=== PATIENT | male | born 1980 | race Caucasian/White ===

== ENCOUNTER 2020-10-16 11:05 | Outpatient (CLI) | payer MEDICARE, MEDICAID | END 2020-10-16 23:59 | disposition home or self-care (01) | LOC: CFH 11:05 | PROVIDERS: ATTEND Hospitalist | DX: R05 Cough (principal); M41.85 Other forms of scoliosis, thoracolumbar region | CPT/HCPCS: 71250 ==

== ENCOUNTER → 2020-10-17 | Outpatient (CLI) | payer MEDICARE, MEDICAID | END | disposition home or self-care (01) | LOC: RAD 07:41 | PROVIDERS: ATTEND Internal Medicine Gastroenterology | DX: K22.2 Esophageal obstruction (principal); R05 Cough; G81.90 Hemiplegia, unspecified affecting unspecified side; I67.89 Other cerebrovascular disease; T17.908A Unspecified foreign body in respiratory tract, part unspecified causing other injury, initial encounter; M40.209 Unspecified kyphosis, site unspecified; X58.XXXA Exposure to other specified factors, initial encounter; Y93.89 Activity, other specified; Y92.89 Other specified places as the place of occurrence of the external cause; Y99.8 Other external cause status; F72 Severe intellectual disabilities; Z93.1 Gastrostomy status; Z68.23 Body mass index [BMI] 23.0-23.9, adult | CPT/HCPCS: 74240 ==

== ENCOUNTER 2020-12-06 08:00 | Day surgery (SDC) | payer MEDICARE, MEDICAID ==
[~2020-12-06] VITALS: Ht 162.6 cm; Wt 61.4 kg
[~2020-12-06 08:00] MED LIST: LIDOCAINE 4% TOPICAL SOLUTION 50 ML ONE; LIDOCAINE GEL 2%, 5ML ONE
[2020-12-06 09:26] VITALS: BP 136/87
[2020-12-06] MEDS ORDERED: CARB100O PEG (09:32)
[2020-12-06] MEDS ORDERED: miralax PEG (09:32)
[2020-12-06] MEDS ORDERED: LORA-247 PEG (09:32)
[2020-12-06] MEDS ORDERED: LANS15CA53 PEG (09:32)
[2020-12-06] MEDS ORDERED: melatonin PEG (09:32)
[2020-12-06] MEDS ORDERED: FENTANYL PF 100 MCG/2ML ONE (09:44)
[2020-12-06] MEDS ORDERED: MIDAZOLAM 1 MG/ML, 5ML ONE (09:44)
[2020-12-06 09:45] LABS: BASOPHILS % (AUTO) 1 % (0-1); EOSINOPHILS % (AUTO) 1 % (1-7); LYMPHOCYTES % (AUTO) 33 % (22-44); MEAN CORPUSCULAR HEMOGLOBIN 31.8 pg (27.5-34.5); MEAN CORPUSCULAR HGB CONC 34.7 g/dL (33.2-36.2); MEAN PLATELET VOLUME 8.6 fL (7.4-10.4); MONOCYTES % (AUTO) 9 % (2-9); NEUTROPHILS % (AUTO) 57 % (42-75); PLATELET COUNT 256 x10^3/uL (130-400); RED BLOOD COUNT 5.47 x10^6/uL (4.38-5.82); RED CELL DISTRIBUTION WIDTH 12.6 % (9.4-14.8)
[2020-12-06] MEDS ORDERED: SODIUM CHLORIDE 0.9% 1,000 ML IV SCH (10:00)
== END 2020-12-06 12:10 | disposition home or self-care (01) ==
LOC: OUT 08:00
PROVIDERS: ATTEND Internal Medicine
DX: R05 Cough (principal); G80.9 Cerebral palsy, unspecified; Z88.0 Allergy status to penicillin; Z88.2 Allergy status to sulfonamides; Z88.8 Allergy status to other drugs, medicaments and biological substances; Z93.1 Gastrostomy status
CPT/HCPCS: 31622; 36415; 85025; 99152; 99153; J2250; J3010; J7030